=== PATIENT | female | born 1970 | race Caucasian/White ===

== ENCOUNTER 2017-01-13 09:37 | Emergency (ER) | payer MEDICAID ==
[~2017-01-13] VITALS: Ht 157.5 cm; Wt 103.0 kg
[2017-01-13 09:43] VITALS: BP 171/96; PULSE 98; RESP 18; TEMP 98.2; O2SAT 97
[2017-01-13] MEDS ORDERED: SECU1INJ4 (10:00)
[2017-01-13] MEDS ORDERED: TRIL150T PO (10:00)
[2017-01-13] MEDS ORDERED: METH2.5T PO (10:00)
[2017-01-13] MEDS ORDERED: PERC5TAB12 PO (10:03)
--- NOTE | 2017-01-13 10:05 | PD ---
HPI Chief Complaint: Fall Time Seen by Provider: 09:47 Travel History International Travel<30 days: No Contact w/Intl Traveler<30days: No Traveled to known affect area: No History of Present Illness HPI Patient is a 47 year old female who presents to the ER with c/o of right sided knee pain. Patient reports that she fell last night and landed on her right knee. Reports that she was able to get up and ambulate after the fall. Reports that a few hours later, she had increased swelling and pressure to her right knee. Patient denies any trauma to her head/neck. Denies loc. No other c/o. PFSH Past Medical History Medical History: Denies Significant Hx Past Surgical History Surgical History: No Previous Surgery Social History Alcohol Use: No Tobacco Use: No Substance Use: No Allergies-Medications (Allergen,Severity, Reaction): Coded Allergies: No Known Allergies (Unverified , 01/13/17) Reported Meds & Prescriptions Reported Meds & Active Scripts Active Percocet (Oxycodone-Acetaminophen) 5-325 mg Tab 1 Tab PO Q6H PRN Reported Trileptal (Oxcarbazepine) 150 Mg Tab Unknown Dose PO DAILY Cosentyx (2 Syringes) (Secukinumab) 150 Mg/1 Ml Syringe Unknown Dose Methotrexate 2.5 Mg Tab Unknown Dose PO Q7D Review of Systems General / Constitutional: No: Fever Eyes: No: Visual changes HENT: No: Headaches Cardiovascular: No: Chest Pain or Discomfort Respiratory: No: Shortness of Breath Gastrointestinal: No: Abdominal Pain Genitourinary: No: Dysuria Musculoskeletal: Positive: Limited ROM (right knee pain), Pain (right knee pain ) Skin: No Rash Neurologic: No: Weakness Psychiatric: No: Depression Endocrine: No: Polydipsia Hematologic/Lymphatic: No: Easy Bruising Physical Exam Narrative GENERAL: Well-nourished, well-developed patient. SKIN: Focused skin assessment warm/dry. HEAD: Normocephalic. EYES: No scleral icterus. No injection or drainage. NECK: Supple, trachea midline. No JVD or lymphadenopathy. CARDIOVASCULAR: Regular rate and rhythm without murmurs, gallops, or rubs. RESPIRATORY: Breath sounds equal bilaterally. No accessory muscle use. GASTROINTESTINAL: Abdomen soft, non-tender, nondistended. MUSCULOSKELETAL: No cyanosis, no obvious fracture LLE: normal exam RLE: Patient with normal range of motion to her right hip, right knee, right ankle. Patient with pain with range of motion to her right knee. There is mild diffuse swelling to her right knee - no obvious open fx or fracture noted. pulses intact, neurovascularly intact. Left lower extremity: Normal exam BACK: Nontender without obvious deformity. No CVA tenderness. Data Data Last Documented VS Vital Signs Date Time Temp Pulse Resp B/P Pulse Ox O2 Delivery O2 Flow Rate FiO2 01/13/17 09:50 01/13/17 09:43 98.2 98 18 97 Room Air Orders Knee, Complete (4vws) (01/13/17 ) Oxycodone-Acetamin 5-325 Mg (Percocet (01/13/17 10:15) MDM Medical Decision Making Medical Screen Exam Complete: Yes Emergency Medical Condition: Yes Interpretation(s) Vital Signs Date Time Temp Pulse Resp B/P Pulse Ox O2 Delivery O2 Flow Rate FiO2 01/13/17 09:50 01/13/17 09:43 98.2 98 18 171/96 97 Room Air Differential Diagnosis Differential includes right knee fracture, patella fracture, knee sprain, traumatic knee effusion Narrative Course 47-year-old female who presents to emergency room complaints of right knee pain after fall last night. Patient denies any other trauma to her head or neck, reports the pain is localized to her right knee. Reports that she noticed increased swelling pain with ambulation. Xray of knee ordered. patient with no acute fx on xray - patient with most likely right knee strain. Will apply [place] bandage. Encouraged rest, ice, elevation. Patient will follow- up with orthopedic surgery and will return to the emergency room as needed Diagnosis Primary Impression: Right knee sprain Qualified Code: S83.91XA - Sprain of right knee, unspecified ligament, initial encounter Referrals: Arvin Agrawal MD Patient Instructions: General Instructions, Narcotic given in the ED Additional Instructions: Please follow up with orthopedic surgery if symptoms progress or worsen Return to ER as needed Please rest/ice and elevate your right lower extremity Do not drive while taking narcotic pain medications Med/Other Pt SpecificInfo: Prescription(s) given Scripts Oxycodone-Acetaminophen (Percocet)5-325 mg Tab1 Tab PO Q6H PRN (PAIN) #10 TAB Ref 0 Prov:Trudy Carrillo DO 01/13/17 Disposition: 01 DISCHARGE HOME Condition: Stable Trudy Carrillo DO Jan 13, 2017 10:05
[2017-01-13] MEDS ORDERED: oxyCODONE/ACETAMINOPHEN 5 MG/325 MG TAB PO ONE (10:15)
--- NOTE | 2017-01-13 10:17 | RADRPT ---
EXAM DATE/TIME: 01/13/2017 09:55 [facility] COMPARISON: No previous studies available for comparison. INDICATIONS : Right knee pain post fall last night. MEDICAL HISTORY : Arthritis. Fibromyalgia. Pulmonary embolism. SURGICAL HISTORY : Gastric bypass. Hernia repair. Right shoulder. Rolly filter. ENCOUNTER: Initial ACUITY: 2 days PAIN SCORE: 10/10 LOCATION: Right knee FINDINGS: There is narrowing of the lateral joint compartment. There is some hypertrophic change at the lateral joint compartment. No fracture or effusion is seen. CONCLUSION: Degenerative change at the lateral joint compartment. Keith Madden MD on January 13, 2017 at 10:14 Board Certified Radiologist. This report was verified electronically.
[2017-01-13] MEDS ORDERED: KETOROLAC TROMETHAMINE 60 MG/2 ML (IM) VIAL IM ONE (10:45)
== END 2017-01-13 11:00 | disposition home or self-care (01) ==
LOC: PHED 09:37
DX: S83.91XA Sprain of unspecified site of right knee, initial encounter (principal); W19.XXXA Unspecified fall, initial encounter; Y93.9 Activity, unspecified; Y92.9 Unspecified place or not applicable
CPT/HCPCS: 73564; 96372; 99284; J1885